=== PATIENT | male | born 1945 | race Caucasian/White ===

== ENCOUNTER 2016-12-31 08:42 | Emergency (ER) | payer BC ==
[~2016-12-31] VITALS: Ht 175.3 cm; Wt 80.0 kg
[~2016-12-31 08:42] MED LIST: ASPI81 PO; ROSU10 PO; [UNRECOGNIZED DRUG - CODE] PO
[2016-12-31 08:44] VITALS: BP 172/77; PULSE 88; RESP 16; TEMP 97.4; O2SAT 98
[2016-12-31 09:55] LABS: AUTOMATED NEUTROPHIL # 5.7 TH/MM3 (1.8-7.7); BASOPHIL % 0.4 % (0.0-2.0); EOSINOPHIL % 0.4 % (0.0-4.0); HEMATOCRIT 42.2 % (39.0-51.0); HEMO FLAGS DIFF FINAL; LYMPH % 16.4 % (9.0-44.0); LYMPHOCYTE # 1.3 TH/MM3 (1.0-4.8); MEAN CELL VOLUME 89.8 FL (80.0-100.0); MEAN CORPUSCULAR HEMOGLOBIN 30.9 PG (27.0-34.0); MEAN CORPUSCULAR HGB CONC 34.4 % (32.0-36.0); MONO % 9.3 % (0.0-8.0); NEUT % 73.5 % (16.0-70.0); PLATELET COUNT 190 TH/MM3 (150-450); RED CELL DISTRIBUTION WIDTH 13.3 % (11.6-17.2); WHITE BLOOD COUNT 7.8 TH/MM3 (4.0-11.0)
[2016-12-31 10:01] VITALS: RESP 18; O2SAT 96
[2016-12-31 10:02] LABS: INTERNATIONAL NORMALIZED RATIO 0.9 RATIO; PROTHROMBIN TIME - PATIENT 10.4 SEC (9.8-11.6)
[2016-12-31 10:09] LABS: ANION GAP 5 MEQ/L (5-15); BICARBONATE 32.6 MEQ/L (21.0-32.0); BLOOD UREA NITROGEN 13 MG/DL (7-18); CHLORIDE 105 MEQ/L (98-107); GLOMERULAR FILTRATION RATE 75 ML/MIN (>89); POTASSIUM 4.4 MEQ/L (3.5-5.1); SODIUM (NA) 143 MEQ/L (136-145)
[2016-12-31 10:13] LABS: CREATINE KINASE 107 U/L (39-308)
--- NOTE | 2016-12-31 10:15 | PD ---
HPI Chief Complaint: Chest Pain Time Seen by Provider: 10:00 Travel History International Travel<30 days: No Contact w/Intl Traveler<30days: No Traveled to known affect area: No History of Present Illness HPI This is a 71 year-old gentleman history coronary artery disease, Parkinson's disease, status post coronary artery stent , almost 3 years ago, who presents today with an episode of right sided chest pain. The patient's daughter is also at the bedside states that he woke her up stating he was having a sharp pain in his right side of his chest. There is no reported shortness of breath, nausea, diaphoresis with the discomfort. Daughter states that they just got a new bed rail and that he's been using this with his right side. She thought that this may be musculoskeletal pain related to that is new use of his right sided bedrail. They're here mainly just to make sure that there is no acute problems with his heart. He is pain-free at time of my examination. PFSH Past Medical History Cancer: No Cardiovascular Problems: No Diabetes: No Hepatitis: No Hiatal Hernia: No Hypertension: No Parkinson's Disease: Yes Respiratory: No Thyroid Disease: No Past Surgical History Pacemaker: No Other Surgery: No Social History Alcohol Use: No Tobacco Use: No Substance Use: No Allergies-Medications (Allergen,Severity, Reaction): Coded Allergies: No Known Allergies (Verified , 12/31/16) Reported Meds & Prescriptions Reported Meds & Active Scripts Active Reported Lodosyn (Carbidopa) 25 Mg Tab 25 Mg PO TID Crestor (Rosuvastatin Calcium) 10 Mg Tab 10 Mg PO DAILY Aspirin 81 Mg Tab 81 Mg PO DAILY Review of Systems Except as stated in HPI: all other systems reviewed are Neg General / Constitutional: No: Fever, Chills HENT: No: Headaches, Lightheadedness Cardiovascular: Positive: Chest Pain or Discomfort (right sided sharp), No: Palpitations ( no pain now) Respiratory: No: Cough, Shortness of Breath Gastrointestinal: Positive: Constipation (chronic mild constipation), No: Nausea, Vomiting, Abdominal Pain Genitourinary: No: Dysuria, Decreased Urinary Output Musculoskeletal: No: Weakness, Pain Neurologic: Positive: Other (issue Parkinson's), No: Weakness, Headache Physical Exam Narrative GENERAL: Well-nourished, well-developed patient, in no acute rest her distress. SKIN: Warm and dry. HEAD: Normocephalic/atraumatic. EYES: No scleral icterus. No injection or drainage. NECK: Supple, trachea midline. CARDIOVASCULAR: Regular rate and rhythm without murmurs, gallops, or rubs. RESPIRATORY: Breath sounds equal bilaterally. No accessory muscle use. GASTROINTESTINAL: Abdomen soft, non-tender, nondistended. No rebound or guarding. MUSCULOSKELETAL: No cyanosis, or edema. NEUROLOGICAL: Awake and alert. Cranial nerves II through XII intact. Motor grossly within normal limits. Five out of 5 muscle strength in all muscle groups. Slight stuttered speech secondary to Parkinson's. Data Data Last Documented VS Vital Signs Date Time Temp Pulse Resp B/P Pulse Ox O2 Delivery O2 Flow Rate FiO2 12/31/16 10:51 83 18 118/63 99 Room Air 12/31/16 08:44 97.4 Orders Electrocardiogram (12/31/16 ) Complete Blood Count With Diff (12/31/16 09:19) Basic Metabolic Panel (Bmp) (12/31/16 09:19) Ckmb (Isoenzyme) Profile (12/31/16 09:19) Troponin I (12/31/16 09:19) Chest, Single Ap (12/31/16 09:19) Iv Access Insert/Monitor (12/31/16:19) Ecg Monitoring (12/31/16:19) Oxygen Administration (12/31/16 09:19) Oximetry (12/31/16 09:19) Prothrombin Time / Inr (Pt) (12/31/16 09:28) CKMB (12/31/16 09:25) CKMB% (12/31/16 09:25) Labs Laboratory Tests Test 12/31/16 09:25 White Blood Count 7.8 TH/MM3 Red Blood Count 4.70 MIL/MM3 Hemoglobin 14.5 GM/DL Hematocrit 42.2 % Mean Corpuscular Volume 89.8 FL Mean Corpuscular Hemoglobin 30.9 PG Mean Corpuscular Hemoglobin 34.4 % Concent Red Cell Distribution Width 13.3 % Platelet Count 190 TH/MM3 Mean Platelet Volume 8.1 FL Neutrophils (%) (Auto) 73.5 % Lymphocytes (%) (Auto) 16.4 % Monocytes (%) (Auto) 9.3 % Eosinophils (%) (Auto) 0.4 % Basophils (%) (Auto) 0.4 % Neutrophils # (Auto) 5.7 TH/MM3 Lymphocytes # (Auto) 1.3 TH/MM3 Monocytes # (Auto) 0.7 TH/MM3 Eosinophils # (Auto) 0.0 TH/MM3 Basophils # (Auto) 0.0 TH/MM3 CBC Comment DIFF FINAL Differential Comment Prothrombin Time 10.4 SEC Prothromb Time International 0.9 RATIO Ratio Sodium Level 143 MEQ/L Potassium Level 4.4 MEQ/L Chloride Level 105 MEQ/L Carbon Dioxide Level 32.6 MEQ/L Anion Gap 5 MEQ/L Blood Urea Nitrogen 13 MG/DL Creatinine 0.99 MG/DL Estimat Glomerular Filtration 75 ML/MIN Rate Random Glucose 83 MG/DL Calcium Level 9.0 MG/DL Total Creatine Kinase 107 U/L Creatine Kinase MB 1.4 NG/ML Troponin I LESS THAN 0.02 NG/ML MDM Medical Decision Making Medical Screen Exam Complete: Yes Emergency Medical Condition: Yes Interpretation(s) Last Impressions Chest X-Ray 12/31/16 0919 Signed Impressions: Service Date/Time: Saturday, December 31, 2016 10:06 - CONCLUSION: No acute cardiopulmonary abnormalities identified. Junior Crowe MD Differential Diagnosis Muscle skeletal pain versus ACS versus pleurisy. Narrative Course 71-year-old male who presents with an episode of right sided chest pain. The pain was prior to arrival. The patient is pain-free at the time my examination. Patient's EKG shows no evidence of acute abnormalities. Cardiac enzymes are within normal limits. I discussed the findings with the patient and his daughter. They were given the option of him being admitted to our chest pain center however they have opted not to at this point. I did state that this is very atypical for cardiac pain however we could not be 100% sure. Given that, they would still rather go home. I've instructed if he develops any worsening pain, shortness breath, nausea, or any other reason concerns him, that he should come back. They understand this and will do so if it recurs.. Diagnosis Primary Impression: Atypical chest pain Additional Impressions: PARKINSON'S DISEASE History of coronary artery disease Additional Instructions: Return if pain returns, gets worse, shortness of breath, nausea, or any other reason that concerned her. Thank you for using [facility], we know you have a choice and healthcare. Disposition: DISCHARGE HOME Condition: Stable Valeriy Weller MD Dec 31, 2016 10:15
[2016-12-31 10:26] LABS: CKMB 1.4 NG/ML (0.5-3.6)
[2016-12-31 10:51] VITALS: BP 118/63; PULSE 83; RESP 18; O2SAT 99
--- NOTE | 2016-12-31 11:09 | RADRPT ---
EXAM DATE/TIME: 12/31/2016 10:06 [facility] COMPARISON: No previous studies available for comparison. INDICATIONS : Chest pain. MEDICAL HISTORY : None. SURGICAL HISTORY : None. ENCOUNTER: Initial ACUITY: 1 day PAIN SCORE: 4/10 LOCATION: Bilateral chest FINDINGS: Portable AP view of the chest demonstrates a normal-sized cardiac silhouette. No effusion, consolidat ion, or pneumothorax is visualized. The bones and soft tissues demonstrate no acute abnormality. CONCLUSION: No acute cardiopulmonary abnormalities identified. Junior Crowe MD on December 31, 2016 at 11:06 Board Certified Radiologist. This report was verified electronically.
--- NOTE | 2016-12-31 18:25 | EKG ---
Date Performed: 12/31/2016 Time Performed: 08:55:24 PTAGE: 71 years EKG: Sinus rhythm BORDERLINE LEFT AXIS DEVIATION BORDERLINE ECG PREVIOUS TRACING : 09/30/2011 15.10 DOCTOR: Rodney Samano Interpretating Date/Time 12/31/2016 18:23:48
== END 2016-12-31 12:00 | disposition home or self-care (01) ==
LOC: NEPC 08:42
DX: R07.89 Other chest pain (principal); G20 Parkinson's disease; R94.31 Abnormal electrocardiogram [ECG] [EKG]; Z86.79 Personal history of other diseases of the circulatory system
CPT/HCPCS: 71010; 80048; 82550; 82552; 84484; 85025; 85610; 93005